=== PATIENT | male | born 1985 | race African-American/Black ===

== ENCOUNTER 2018-11-18 15:33 | Emergency (ER) | payer OTHER ==
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
[2018-11-18] MEDS ORDERED: IOPAMIDOL (ISOVUE-300) 100 ML BTL ONE (16:40)
[2018-11-18 18:07] VITALS: BP 125/75
== END 2018-11-18 18:06 | disposition home or self-care (01) ==
DX: S22.42XA Multiple fractures of ribs, left side, initial encounter for closed fracture (principal); S27.321A Contusion of lung, unilateral, initial encounter; V18.0XXA Pedal cycle driver injured in noncollision transport accident in nontraffic accident, initial encounter; Y93.55 Activity, bike riding
CPT/HCPCS: 82435-PO; 82565-PO; 82947-PO; 84132-PO; 84295-PO; 84520-PO; 85014-ER; Q9967